=== PATIENT | female | born 1995 | race Hispanic/Latino ===

== ENCOUNTER 2022-10-06 01:57 | Emergency (ER) | payer SELFPAY ==
[~2022-10-06] VITALS: Ht 160 cm; Wt 101.2 kg
[2022-10-06 02:33] VITALS: BP 153/93; PULSE 90; RESP 18; TEMP 99.1; O2SAT 97
== END 2022-10-06 02:33 | disposition home or self-care (01) ==
LOC: FSED 02:25
DX: F41.0 Panic disorder [episodic paroxysmal anxiety] (principal)
CPT/HCPCS: 81025; 93005; 99282